=== PATIENT | female | born 1985 | race African-American/Black ===

== ENCOUNTER 2017-04-25 06:30 | Inpatient (IN) ==
[2017-04-25] MEDS: LACTATED RINGERS 1,000 ML IV SCH ×2 (07:10→11:56)
[2017-04-25] MEDS ORDERED: BUTORPHANOL 2 MG/ML VIAL IV PRN (07:13)
[2017-04-25] MEDS ORDERED: ONDANSETRON 4 MG/2 ML VIAL IV PRN (07:13)
[2017-04-25] MEDS ORDERED: LACTATED RINGERS 500 ML IV PRN (07:13)
[2017-04-25] MEDS ORDERED: MEPERIDINE 50 MG/1 ML VIAL IV PRN (07:13)
[2017-04-25] MEDS ORDERED: OXYTOCIN/LR 20 UNIT/1,000 ML BAG IV SCH (07:30)
[2017-04-25 07:39] LABS: Basophils % 0.2 % (0.0-0.8); Eosinophils # 0.1 10*3/uL (0.0-0.87); Hemoglobin 11.3 GM/DL (12.0-16.0); Immature Granulocytes % 0.4 %; Immature Granulocytes Absolute 0.04 #; Lymphocytes # 1.8 10*3/uL (1.4-4.0); Lymphocytes % 19.9 % (21.3-54.2); Mean Corpuscular HGB Conc 33.2 GM/DL (32-36); Mean Corpuscular Hemoglobin 29 PG (27-34); Mean Corpuscular Volume 86.7 FL (87-102); Mean Platelet Volume 10.5 FL (9.6-12.0); Monocytes # 0.9 10*3/uL (0.11-0.8); Monocytes % 9.5 % (1.7-12.7); Neutrophils # 6.3 10*3/uL (1.4-7.4); Platelet Count 254 T/CUMM (130-400); Red Blood Count 3.92 MC/CUMM (3.8-5.5); Red Cell Distribution Width 14.6 % (9.3-17.3); White Blood Count 9.2 T/CUMM (4-12)
[2017-04-25 08:09] LABS: Alanine Aminotransferase 17 U/L (13-56); Albumin 2.9 G/DL (3.4-5.0); Alkaline Phosphatase 91 U/L (45-117); Aspartate Amino Transferase 18 U/L (0-37); Bilirubin,Total < 0.39 MG/DL (0.2-1.0); Blood Urea Nitrogen 12 MG/DL (7-18); Calcium 9.2 MG/DL (8.5-10.1); Glucose 94 MG/DL (74-106); Potassium 3.8 MMOL/L (3.5-5.1); Sodium 136 MMOL/L (136-145); Total Protein 7.6 G/DL (6.4-8.3); Uric Acid 4.5 MG/DL (2.6-6.0)
[2017-04-25] MEDS ORDERED: LACTATED RINGERS 1,000 ML IV ONE (09:17)
[2017-04-25] MEDS ORDERED: FAMOTIDINE 20 MG/2 ML VIAL IV ONE (09:17)
[2017-04-25] MEDS ORDERED: CITRIC ACID/SODIUM CITRATE 30 ML UDCUP PO ONE (09:17)
[2017-04-25] MEDS ORDERED: PROMETHAZINE 25 MG/1 ML VIAL IM ONE (09:19)
[2017-04-25] MEDS ORDERED: hydrOXYzine HCL 25 MG/1 ML VIAL IM PRN (09:19)
[2017-04-25] MEDS ORDERED: diphenhydrAMINE 50 MG/1 ML VIAL IV PRN ×2 (09:19)
[2017-04-25] MEDS ORDERED: fentaNYL 2 MCG/ROPIV 0.2% EPID 150 ML EPIDURAL SCH (09:30)
[2017-04-25 11:38] LABS: Apearance,Urine CLEAR (Clear); Bilirubin,Urine Negative (Negative); Blood, Urine Negative (Negative); Glucose,Urine (UA) Negative (Negative); Ketones,Urine 20 mg/dL (Negative); Mucus,Urine Few /LPF (Occasional); Nitrite,Urine Negative (Negative); Protein,Urine Negative; RBC,Urine 3 /HPF (0-4); Urine Color Yellow (Yellow); Urine Specific Gravity 1.029 (1.001-1.035); Urine Urobilinogen < 2.0 EU/DL (0.2-1.0); WBC,Urine <1 /HPF (0-6)
[2017-04-25] MEDS ORDERED: METHYLERGONOVINE 0.2 MG/1 ML AMP ONE (16:09)
[2017-04-25] MEDS ORDERED: miSOPROStol 200 MCG TABLET ONE (16:09)
[2017-04-25] MEDS ORDERED: HYDROCORTISONE 2.5% RECTAL CREAM 30 GM TUBE TOP PRN (20:09)
[2017-04-25] MEDS ORDERED: ACETAMINOPHEN/CODEINE 300-30 MG TABLET PO PRN (20:09)
[2017-04-25] MEDS ORDERED: LANOLIN 50% CREAM 0.3 OZ TUBE TOP PRN (20:09)
[2017-04-25] MEDS ORDERED: WITCH HAZEL PADS 100/JAR TOP PRN (20:09)
[2017-04-25] MEDS ORDERED: BISACODYL 10 MG SUPP RECTAL PRN (20:09)
[2017-04-25] MEDS ORDERED: BENZOCAINE 20%/MENTHOL 0.5% SPRAY 56 GM CAN TOP PRN (20:09)
[2017-04-25] MEDS ORDERED: ACETAMINOPHEN 325 MG TABLET PO PRN (20:09)
[2017-04-25] MEDS ORDERED: DIPH/TET/ACEL PERT BOOSTER VACCINE 0.5 ML VIAL IM ONE (20:09)
[2017-04-25] MEDS ORDERED: oxyCODONE/ACETAMINOPHEN 5-325 MG TABLET PO PRN ×2 (20:09)
[2017-04-25] MEDS ORDERED: MEASLES/MUMPS/RUBELLA VACCINE 0.5 ML VIAL SUBCUT ONE (20:09)
[2017-04-25] MEDS ORDERED: IBUPROFEN 800 MG TABLET PO PRN (20:09)
[2017-04-25] MEDS ORDERED: RHO(D) IMMUNE GLOBULIN 300 MCG SYRINGE IM ONE (20:09)
[2017-04-25] MEDS ORDERED: OXYTOCIN/LR 20 UNIT/1,000 ML BAG IV ONE (20:10)
[2017-04-25] MEDS: DOCUSATE SODIUM 100 MG CAPSULE PO SCH (20:44)
[2017-04-26 06:03] LABS: Basophils % 0.2 % (0.0-0.8); Eosinophils % 0.3 % (0.00-10.9); Hematocrit 31.4 VOL% (35.7-47.0); Hemoglobin 10.8 GM/DL (12.0-16.0); Immature Granulocytes % 0.5 %; Immature Granulocytes Absolute 0.06 #; Lymphocytes # 1.8 10*3/uL (1.4-4.0); Lymphocytes % 14.3 % (21.3-54.2); Mean Corpuscular HGB Conc 34.4 GM/DL (32-36); Mean Corpuscular Hemoglobin 29 PG (27-34); Mean Corpuscular Volume 84.9 FL (87-102); Mean Platelet Volume 10.6 FL (9.6-12.0); Monocytes # 1.3 10*3/uL (0.11-0.8); Monocytes % 10.7 % (1.7-12.7); Neutrophils # 9.1 10*3/uL (1.4-7.4); Platelet Count 224 T/CUMM (130-400); Red Cell Distribution Width 14.6 % (9.3-17.3); White Blood Count 12.3 T/CUMM (4-12)
[2017-04-26] MEDS: DOCUSATE SODIUM 100 MG CAPSULE PO SCH ×2 (09:42→20:15)
[2017-04-26] MEDS: FERROUS SULFATE 325 MG TABLET PO SCH ×2 (17:54→20:15)
[2017-04-27 07:20] VITALS: BP 119/77
[2017-04-27] MEDS: DOCUSATE SODIUM 100 MG CAPSULE PO SCH (09:51)
[2017-04-27] MEDS: FERROUS SULFATE 325 MG TABLET PO SCH (09:51)
== END 2017-04-27 11:50 | disposition home or self-care (01) | DRG 775 ==
LOC: N.LDOUT 06:30 → N.LD 06:32 → N.OB 20:20
PROVIDERS: ADMIT Obstetrics & Gynecology; ATTEND Obstetrics & Gynecology

== ENCOUNTER 2018-07-31 04:23 | Inpatient (IN) ==
[2018-07-31] MEDS ORDERED: BUTORPHANOL 2 MG/ML VIAL IV PRN (04:33)
[2018-07-31] MEDS ORDERED: ONDANSETRON 4 MG/2 ML VIAL IV PRN ×2 (04:33→06:28)
[2018-07-31] MEDS ORDERED: MEPERIDINE 50 MG/1 ML VIAL IV PRN (04:33)
[2018-07-31] MEDS ORDERED: AMPICILLIN 2,000 MG VIAL ONE (04:47)
[2018-07-31] MEDS ORDERED: SODIUM CHLORIDE 0.9% 1,000 ML IV ONE (04:48)
[2018-07-31] MEDS ORDERED: SODIUM CHLORIDE 0.9% 0 ML IV ONE (04:50)
[2018-07-31] MEDS ORDERED: OXYTOCIN/LR 30 UNIT/1,000 ML BAG IV ONE (04:54)
[2018-07-31] MEDS ORDERED: LACTATED RINGERS 1,000 ML IV SCH (05:00)
[2018-07-31] MEDS ORDERED: OXYTOCIN/LR 20 UNIT/1,000 ML BAG IV SCH (05:00)
[2018-07-31] MEDS ORDERED: AMPICILLIN INJ 2,000 MG in SODIUM CHLORIDE 0.9% 100 ML IV ONE (05:01)
[2018-07-31] MEDS ORDERED: OXYTOCIN 10 UNIT/ML VIAL ONE (05:06)
[2018-07-31 05:13] LABS: Basophils % 0.1 % (0.0-0.8); Eosinophils # 0.1 10*3/uL (0.0-0.87); Eosinophils % 1.1 % (0.00-10.9); Hematocrit 34.5 VOL% (35.7-47.0); Hemoglobin 11.4 GM/DL (12.0-16.0); Immature Granulocytes % 0.6 %; Immature Granulocytes Absolute 0.05 #; Lymphocytes # 1.6 10*3/uL (1.4-4.0); Lymphocytes % 17.7 % (21.3-54.2); Mean Corpuscular Hemoglobin 28 PG (27-34); Mean Corpuscular Volume 85.8 FL (87-102); Mean Platelet Volume 10.2 FL (9.6-12.0); Monocytes # 0.7 10*3/uL (0.11-0.8); Monocytes % 7.6 % (1.7-12.7); Neutrophils # 6.6 10*3/uL (1.4-7.4); Neutrophils % 72.9 % (38.7-73.9); Platelet Count 243 T/CUMM (130-400); Red Blood Count 4.02 MC/CUMM (3.8-5.5)
[2018-07-31 05:38] LABS: Albumin 2.9 G/DL (3.4-5.0); Bilirubin,Total 0.4 MG/DL (0.2-1.0); Calcium 9.1 MG/DL (8.5-10.1); Osmolality,Calculated 269.1 MOS/KG (273-304); Potassium 3.7 MMOL/L (3.5-5.1); Total Protein 7.6 G/DL (6.4-8.3)
[2018-07-31 05:55] LABS: Cord Arterial Blood HCO3 25.2 MMOL/L
[2018-07-31 05:57] LABS: Apearance,Urine Slightly Hazy (Clear); Bilirubin,Urine Negative (Negative); Blood, Urine Moderate mg/dL (Negative); Glucose,Urine (UA) Negative (Negative); Hyaline Casts,Urine 4 /LPF (0-3); Ketones,Urine 5 mg/dL (Negative); Mucus,Urine Many /LPF (Occasional); Nitrite,Urine Negative (Negative); Protein,Urine 30 MG/DL; RBC,Urine 59 /HPF (0-4); Squamous Epithelial Cell,Urine Occasional /HPF (0-10); Urine Color Yellow (Yellow); Urine Specific Gravity 1.029 (1.001-1.035); Urine Urobilinogen < 2.0 EU/DL (0.2-1.0); WBC,Urine <1 /HPF (0-6)
[2018-07-31 05:59] LABS: Cord Venous Blood PCO2 51.9 MMHG; Cord Venous Blood PO2 33.1 MMHG
[2018-07-31] MEDS ORDERED: LANOLIN 50% CREAM 0.3 OZ TUBE TOP PRN (06:28)
[2018-07-31] MEDS ORDERED: HYDROCORTISONE 2.5% RECTAL CREAM 30 GM TUBE TOP PRN (06:28)
[2018-07-31] MEDS ORDERED: oxyCODONE/ACETAMINOPHEN 5-325 MG TABLET PO PRN ×2 (06:28)
[2018-07-31] MEDS ORDERED: MEASLES/MUMPS/RUBELLA VACCINE 0.5 ML VIAL SUBCUT ONE (06:28)
[2018-07-31] MEDS ORDERED: BENZOCAINE 20%/MENTHOL 0.5% SPRAY 56 GM CAN TOP PRN (06:28)
[2018-07-31] MEDS ORDERED: RHO(D) IMMUNE GLOBULIN 300 MCG SYRINGE IM ONE (06:28)
[2018-07-31] MEDS ORDERED: DIPH/TET/ACEL PERT BOOSTER VACCINE 0.5 ML VIAL IM ONE (06:28)
[2018-07-31] MEDS ORDERED: ACETAMINOPHEN 325 MG TABLET PO PRN (06:28)
[2018-07-31] MEDS ORDERED: WITCH HAZEL PADS 100/JAR TOP PRN (06:28)
[2018-07-31] MEDS ORDERED: OXYTOCIN/LR 20 UNIT/1,000 ML BAG IV ONE (06:28)
[2018-07-31] MEDS ORDERED: BISACODYL 10 MG SUPP RECTAL PRN (06:28)
[2018-07-31] MEDS: IBUPROFEN 800 MG TABLET PO PRN (09:46)
[2018-07-31] MEDS: DOCUSATE SODIUM 100 MG CAPSULE PO SCH ×2 (09:46→21:28)
[2018-08-01 05:15] LABS: Basophils % 0.2 % (0.0-0.8); Eosinophils # 0.2 10*3/uL (0.0-0.87); Eosinophils % 1.6 % (0.00-10.9); Hemoglobin 9.3 GM/DL (12.0-16.0); Immature Granulocytes % 0.4 %; Immature Granulocytes Absolute 0.04 #; Lymphocytes # 2.6 10*3/uL (1.4-4.0); Lymphocytes % 27.5 % (21.3-54.2); Mean Corpuscular HGB Conc 32.1 GM/DL (32-36); Mean Corpuscular Hemoglobin 28 PG (27-34); Mean Corpuscular Volume 87.9 FL (87-102); Mean Platelet Volume 10.6 FL (9.6-12.0); Monocytes # 0.9 10*3/uL (0.11-0.8); Monocytes % 9.6 % (1.7-12.7); Neutrophils # 5.8 10*3/uL (1.4-7.4); Neutrophils % 60.7 % (38.7-73.9); Platelet Count 192 T/CUMM (130-400); Red Cell Distribution Width 15.2 % (9.3-17.3); White Blood Count 9.5 T/CUMM (4-12)
[2018-08-01] MEDS: DOCUSATE SODIUM 100 MG CAPSULE PO SCH ×2 (09:05→21:01)
[2018-08-01] MEDS: IBUPROFEN 800 MG TABLET PO PRN (15:02)
[2018-08-02 07:13] VITALS: BP 119/79
[2018-08-02] MEDS: DOCUSATE SODIUM 100 MG CAPSULE PO SCH (08:19)
== END 2018-08-02 12:10 | disposition home or self-care (01) | DRG 807 ==
LOC: N.LDOUT 04:23 → N.LD 04:25 → N.OB 08:01
PROVIDERS: ADMIT Obstetrics & Gynecology; ATTEND Obstetrics & Gynecology

== ENCOUNTER 2022-03-23 21:28 | Inpatient (IN) ==
[2022-03-23] MEDS ORDERED: MEPERIDINE 25 MG/1 ML VIAL IV PRN (22:10)
[2022-03-23] MEDS ORDERED: ACETAMINOPHEN 325 MG TABLET PO PRN (22:10)
[2022-03-23] MEDS ORDERED: LACTATED RINGERS 250 ML IV ONE (22:10)
[2022-03-23] MEDS ORDERED: BUTORPHANOL 1 MG/ML VIAL IV PRN (22:10)
[2022-03-23] MEDS ORDERED: OXYTOCIN/LR 20 UNIT/1,000 ML BAG IV ONE (22:10)
[2022-03-23] MEDS ORDERED: BUTORPHANOL 2 MG/ML VIAL IV PRN (22:10)
[2022-03-23] MEDS ORDERED: TRANEXAMIC ACID 1,000 MG in SODIUM CHLORIDE 0.9% 100 ML IV PRN (22:10)
[2022-03-23] MEDS ORDERED: TERBUTALINE 1 MG/1 ML VIAL SUBCUT PRN (22:10)
[2022-03-23] MEDS ORDERED: CARBOPROST TROMETHAMINE 250 MCG/ML AMP IM PRN (22:10)
[2022-03-23] MEDS ORDERED: LACTATED RINGERS 500 ML IV PRN (22:10)
[2022-03-23] MEDS ORDERED: miSOPROStoL 200 MCG TABLET RECTAL PRN (22:10)
[2022-03-23] MEDS ORDERED: ONDANSETRON 4 MG/2 ML VIAL IV PRN (22:10)
[2022-03-23] MEDS ORDERED: METHYLERGONOVINE 0.2 MG/1 ML AMP IM PRN (22:10)
[2022-03-23] MEDS ORDERED: MEPERIDINE 50 MG/1 ML VIAL IV PRN (22:10)
[2022-03-23] MEDS ORDERED: OXYTOCIN/LR 20 UNIT/1,000 ML BAG IV SCH (22:30)
[2022-03-23 22:45] LABS: Basophils % 0.1 % (0.0-0.8); Eosinophils # 0.1 10*3/uL (0.0-0.87); Eosinophils % 0.7 % (0.00-10.9); Hematocrit 30.6 VOL% (35.7-47.0); Hemoglobin 10.3 GM/DL (12.0-16.0); Immature Granulocytes % 0.7 %; Immature Granulocytes Absolute 0.06 #; Lymphocytes # 1.6 10*3/uL (1.4-4.0); Lymphocytes % 18.5 % (21.3-54.2); Mean Corpuscular HGB Conc 33.7 GM/DL (32-36); Mean Corpuscular Volume 86.9 FL (87-102); Mean Platelet Volume 10.7 FL (9.6-12.0); Monocytes # 0.8 10*3/uL (0.11-0.8); Monocytes % 9.3 % (1.7-12.7); Neutrophils % 70.7 % (38.7-73.9); Platelet Count 219 T/CUMM (130-400); Red Blood Count 3.52 MC/CUMM (3.8-5.5); Red Cell Distribution Width 14.3 % (9.3-17.3); White Blood Count 8.8 T/CUMM (4-12)
[2022-03-23 23:04] LABS: Alanine Aminotransferase 20 U/L (13-56); Albumin 2.8 G/DL (3.4-5.0); Alkaline Phosphatase 90 U/L (45-117); Aspartate Amino Transferase 21 U/L (0-37); Bilirubin,Total < 0.39 MG/DL (0.20-1.00); Blood Urea Nitrogen 12 MG/DL (7-18); Calcium 9.4 MG/DL (8.5-10.1); Carbon Dioxide 23 MMOL/L (21-32); Chloride 108 MMOL/L (98-107); Glucose 96 MG/DL (74-106); Osmolality,Calculated 276.5 MOS/KG (273-304); Potassium 3.7 MMOL/L (3.5-5.1); Sodium 139 MMOL/L (136-145); Total Protein 7.1 G/DL (6.4-8.2)
[2022-03-23 23:33] LABS: HIV Antigen/Antibody Result Nonreactive (Nonreactive)
[2022-03-24 00:05] LABS: Hepatitis B Surface Ag Quant < 0.10 Index; Hepatitis B Surface Ag Result Non-Reactive (NonReactive)
[2022-03-24] MEDS: LACTATED RINGERS 1,000 ML IV SCH ×2 (04:30→08:13)
[2022-03-24] MEDS: OXYTOCIN/LR 20 UNIT/1,000 ML BAG IV SCH ×2 (04:31→18:27)
[2022-03-24] MEDS ORDERED: PROMETHAZINE 25 MG/1 ML VIAL IM ONE (07:12)
[2022-03-24] MEDS ORDERED: NALOXONE 0.4 MG/ML VIAL IV PRN (07:12)
[2022-03-24] MEDS ORDERED: LACTATED RINGERS 1,000 ML IV ONE (07:12)
[2022-03-24] MEDS ORDERED: ONDANSETRON 4 MG/2 ML VIAL IV ONE (07:12)
[2022-03-24] MEDS ORDERED: CITRIC ACID/SODIUM CITRATE 30 ML UDCUP PO ONE (07:12)
[2022-03-24] MEDS ORDERED: ePHEDrine 50 MG/ML VIAL IV PRN (07:12)
[2022-03-24] MEDS ORDERED: FAMOTIDINE 20 MG/2 ML VIAL IV ONE (07:12)
[2022-03-24] MEDS ORDERED: diphenhydrAMINE 50 MG/1 ML VIAL IV PRN ×2 (07:12)
[2022-03-24] MEDS ORDERED: hydrOXYzine HCL 25 MG/1 ML VIAL IM PRN (07:12)
[2022-03-24] MEDS ORDERED: fentaNYL 2 MCG/ROPIV 0.2% EPID 100 ML EPIDURAL SCH (07:30)
[2022-03-24 09:55] LABS: Bilirubin,Urine Negative (Negative); Blood, Urine Negative (Negative); Glucose,Urine (UA) Negative (Negative); Ketones,Urine 80 mg/dL (Negative); Mucus,Urine Many /LPF (Occasional); Nitrite,Urine Negative (Negative); Protein,Urine 30 mg/dL (Negative); RBC,Urine 14 /HPF (0-4); Squamous Epithelial Cell,Urine Occasional /HPF (0-10); Urine Appearance Slightly Hazy (Clear); Urine Color Amber (Yellow); Urine Urobilinogen < 2.0 eU/dL (<2.0)
[2022-03-24] MEDS ORDERED: SODIUM CHLORIDE 0.9% 0 ML IV ONE (16:47)
[2022-03-24] MEDS ORDERED: miSOPROStoL 200 MCG TABLET ONE (16:47)
[2022-03-24] MEDS ORDERED: OXYTOCIN/LR 20 UNIT/1,000 ML BAG IV ONE ×2 (16:47→22:00)
[2022-03-24] MEDS ORDERED: TRANEXAMIC ACID 1,000 MG/10 ML VIAL ONE (16:47)
[2022-03-24] MEDS ORDERED: METHYLERGONOVINE 0.2 MG/1 ML AMP ONE (16:48)
[2022-03-24] MEDS ORDERED: CARBOPROST TROMETHAMINE 250 MCG/ML AMP IM ONE (16:48)
[2022-03-24 17:34] LABS: Cord Venous Blood HCO3 22.1 MMOL/L; Cord Venous Blood PCO2 43.5 MMHG; Cord Venous Blood PO2 38.6
[2022-03-24] MEDS ORDERED: BISACODYL 10 MG SUPP RECTAL PRN (22:00)
[2022-03-24] MEDS ORDERED: BENZOCAINE 20%/MENTHOL 0.5% SPRAY 56 GM CAN TOP PRN (22:00)
[2022-03-24] MEDS ORDERED: RHO(D) IMMUNE GLOBULIN 300 MCG SYRINGE IM ONE (22:00)
[2022-03-24] MEDS ORDERED: WITCH HAZEL PADS 100/JAR TOP PRN (22:00)
[2022-03-24] MEDS ORDERED: DIPH/TET/ACEL PERT BOOSTER VACCINE 0.5 ML VIAL IM ONE (22:00)
[2022-03-24] MEDS ORDERED: HYDROCORTISONE 2.5% RECTAL CREAM 30 GM TUBE TOP PRN (22:00)
[2022-03-24] MEDS ORDERED: MEASLES/MUMPS/RUBELLA VACCINE 0.5 ML VIAL SUBCUT ONE (22:00)
[2022-03-24] MEDS ORDERED: LANOLIN 50% CREAM 0.3 OZ TUBE TOP PRN (22:00)
[2022-03-24] MEDS ORDERED: oxyCODONE/ACETAMINOPHEN 5-325 MG TABLET PO PRN ×2 (22:00)
[2022-03-25] MEDS: IBUPROFEN 800 MG TABLET PO PRN ×2 (02:00→19:43)
[2022-03-25] MEDS: DOCUSATE SODIUM 100 MG CAPSULE PO SCH ×3 (05:20→23:47)
[2022-03-25 06:09] LABS: Basophils % 0.2 % (0.0-0.8); Eosinophils % 0.3 % (0.00-10.9); Hematocrit 28.6 VOL% (35.7-47.0); Hemoglobin 9.6 GM/DL (12.0-16.0); Immature Granulocytes % 0.5 %; Immature Granulocytes Absolute 0.06 #; Lymphocytes # 1.6 10*3/uL (1.4-4.0); Lymphocytes % 12.7 % (21.3-54.2); Mean Corpuscular HGB Conc 33.6 GM/DL (32-36); Mean Platelet Volume 10.9 FL (9.6-12.0); Monocytes # 1.4 10*3/uL (0.11-0.8); Monocytes % 11.4 % (1.7-12.7); Neutrophils % 74.9 % (38.7-73.9); Platelet Count 184 T/CUMM (130-400); Red Blood Count 3.25 MC/CUMM (3.8-5.5); Red Cell Distribution Width 14.1 % (9.3-17.3); White Blood Count 12.3 T/CUMM (4-12)
[2022-03-26] MEDS: DOCUSATE SODIUM 100 MG CAPSULE PO SCH (09:52)
[2022-03-26 18:52] VITALS: BP 132/75
== END 2022-03-26 13:50 | disposition home or self-care (01) | DRG 560 ==
LOC: N.LDOUT 21:28 → N.LD 21:30 → N.OB 03-24 21:38
PROVIDERS: ADMIT Obstetrics & Gynecology; ATTEND Obstetrics & Gynecology